=== PATIENT | female | born 1965 | race Caucasian/White ===

== ENCOUNTER 2017-02-13 19:42 | Emergency (ER) | payer MEDICAID ==
[~2017-02-13] VITALS: Ht 144.8 cm; Wt 80.3 kg
[2017-02-13 19:45] VITALS: BP 123/72
--- NOTE | 2017-02-13 19:56 | NUR ---
PATIENT AMBULATED TO ER BED 6.
--- NOTE | 2017-02-13 19:56 | NUR ---
Patient being evaluated by physician at bedside.
--- NOTE | 2017-02-13 20:00 | NUR ---
PATIENT PRESENTS TO ED WITH C/O CHEST PAIN INTERMITTENTLY X3 WEEKS. HX DM, HYPOTENSION. PT DENIES N/V/D; SKIN IS PINK/WARM/DRY; AAOX4 WITH EVEN AND STEADY GAIT; LUNGS CLEAR BL; HR EVEN AND REGULAR; PT DENIES ANY FEVER, CP, SOB, OR COUGH AT THIS TIME; VSS; PATIENT POSITIONED FOR COMFORT; HOB ELEVATED; BEDRAILS UP X2; BED DOWN. ER MD MADE AWARE OF PT STATUS.
[2017-02-13 20:32] LABS: BASOPHILS # (AUTO) 0.1 K/uL (0.00-0.22); BASOPHILS % (AUTO) 1.3 % (0.0-2.0); EOSINOPHILS # (AUTO) 0.2 K/uL (0-0.4); EOSINOPHILS % (AUTO) 2.2 % (0.0-4.0); HEMATOCRIT 39.3 % (36-48); HEMOGLOBIN 12.9 g/dL (12.0-16.0); LYMPHOCYTES % (AUTO) 24.9 % (20.5-51.1); MEAN CORPUSCULAR HEMOGLOBIN 29 pg (27-31); MEAN CORPUSCULAR HGB CONC 33 g/dL (33-37); MEAN CORPUSCULAR VOLUME 87 fL (80-94); MONOCYTES # (AUTO) 0.8 K/uL (0.8-1.0); MONOCYTES % (AUTO) 9.6 % (1.7-9.3); NEUTROPHILS # (AUTO) 4.8 K/uL (1.8-7.7); PLATELET COUNT (AUTO) 314 K/uL (140-450); RED BLOOD CELL COUNT(AUTO) 4.52 MIL/uL (4.20-5.40); RED CELL DISTRIBUTION WIDTH 13.1 % (11.6-13.7); WHITE BLOOD COUNT (AUTO) 7.9 K/uL (4.8-10.8)
[2017-02-13 20:52] LABS: ALBUMIN 3.8 g/dL (3.4-5.0); ANION GAP 8.9 (8-16); CARBON DIOXIDE 30.1 mmol/L (21-32); CREATININE 0.7 mg/dL (0.6-1.3); TOTAL BILIRUBIN 0.2 mg/dL (0.0-1.0)
[2017-02-13 21:00] LABS: PROTHROMBIN TIME 10.4 secs (10.8-13.4)
[2017-02-13 23:33] VITALS: BP 119/81
--- NOTE | 2017-02-13 23:33 | NUR ---
Patient discharged with v/s stable. Written and verbal after care instructions given and explained. Patient verbalized understanding. Ambulatory with steady gait. All questions addressed prior to discharge. Advised to follow up with PMD.
== END 2017-02-13 23:33 | disposition home or self-care (01) ==
LOC: MED 19:42
DX: M94.0 Chondrocostal junction syndrome [Tietze] (principal); E11.9 Type 2 diabetes mellitus without complications; I95.89 Other hypotension
CPT/HCPCS: 36415; 70480; 71010; 80053; 83880; 84484; 85025; 85610; 99285; Q0092

== ENCOUNTER 2017-02-21 16:22 | Emergency (ER) | payer MEDICAID ==
[~2017-02-21] VITALS: Ht 165.1 cm; Wt 81.2 kg
[2017-02-21 16:52] VITALS: BP 115/73
[2017-02-21 18:47] LABS: BASOPHILS # (AUTO) 0.3 K/uL (0.00-0.22); EOSINOPHILS # (AUTO) 0.2 K/uL (0-0.4); HEMATOCRIT 39.1 % (36-48); LYMPHOCYTES # (AUTO) 2.4 K/uL (2.5-16.5); MEAN CORPUSCULAR HEMOGLOBIN 29 pg (27-31); MEAN CORPUSCULAR HGB CONC 33 g/dL (33-37); MEAN CORPUSCULAR VOLUME 87 fL (80-94); MONOCYTES # (AUTO) 0.6 K/uL (0.8-1.0); NEUTROPHILS # (AUTO) 4.3 K/uL (1.8-7.7); PLATELET COUNT (AUTO) 290 K/uL (140-450); RED BLOOD CELL COUNT(AUTO) 4.49 MIL/uL (4.20-5.40); RED CELL DISTRIBUTION WIDTH 12.9 % (11.6-13.7); WHITE BLOOD COUNT (AUTO) 7.8 K/uL (4.8-10.8)
[2017-02-21 18:55] LABS: ANION GAP 8.5 (8-16); CARBON DIOXIDE 31.2 mmol/L (21-32); CREATININE 0.5 mg/dL (0.6-1.3); POTASSIUM 3.7 mmol/L (3.5-5.1)
[2017-02-21 19:01] LABS: ALBUMIN 3.9 g/dL (3.4-5.0); TOTAL BILIRUBIN 0.2 mg/dL (0.0-1.0)
[2017-02-21 19:02] LABS: PROTHROMBIN TIME 10.4 secs (10.8-13.4)
[2017-02-21 19:22] LABS: CREATINE KINASE MB 1.1 ng/mL (0-3.6)
[2017-02-21 22:06] VITALS: BP 111/68
== END 2017-02-21 22:10 | disposition home or self-care (01) ==
LOC: MED 16:22
DX: E11.649 Type 2 diabetes mellitus with hypoglycemia without coma (principal); K21.9 Gastro-esophageal reflux disease without esophagitis; Z79.899 Other long term (current) drug therapy
CPT/HCPCS: 36415; 71010; 80053; 81002; 81025; 82550; 82553; 82948; 84484; 85025; 85610; 85730; 93005; 99285

== ENCOUNTER 2019-05-14 08:56 | Emergency (ER) | payer MEDICAID ==
[~2019-05-14] VITALS: Ht 162.6 cm; Wt 78.9 kg
[2019-05-14 09:12] VITALS: BP 122/78
--- NOTE | 2019-05-14 09:18 | NUR ---
PT AMBULATED TO LOBBY, VSS
[2019-05-14] MEDS ORDERED: KETOROLAC 30 MG/ML VIAL IVP ONE (10:25)
[2019-05-14] MEDS ORDERED: NACL 0.9% 1,000 ML IV ONE (10:25)
--- NOTE | 2019-05-14 10:40 | NUR ---
IV NS AND TORADOL GIVEN PER ORDER. TO ATTEMPT TO OBTAIN ADDITIONAL URINE.
[2019-05-14 11:13] LABS: APPEARANCE,URINE HAZY (CLEAR); BILIRUBIN,URINE NEGATIVE (NEGATIVE); BLOOD, URINE 3+ (NEGATIVE); COLOR,URINE YELLOW (YELLOW); LEUKOCYTE ESTERASE ,URINE 2+ (NEGATIVE); NITRITE, URINE NEGATIVE (NEGATIVE); UGLUCOSE NEGATIVE (NEGATIVE)
[2019-05-14 11:18] LABS: RBC,URINE 50-80 /HPF (0-5)
[2019-05-14 11:19] LABS: WBC,URINE 20-60 /HPF (0-5)
[2019-05-14] MEDS ORDERED: cefTRIAXone 1,000 MG in LIDOCAINE MPF 1% 2.1 ML IM ONE (11:20)
[2019-05-14 12:58] VITALS: BP 96/63
== END 2019-05-14 12:32 | disposition home or self-care (01) ==
LOC: MED 08:56
DX: N39.0 Urinary tract infection, site not specified (principal); E11.9 Type 2 diabetes mellitus without complications; I10 Essential (primary) hypertension; R42 Dizziness and giddiness; Z98.890 Other specified postprocedural states; Z79.84 Long term (current) use of oral hypoglycemic drugs
CPT/HCPCS: 81001; 81025; 82948; 87086; 87186; 96372; 96374; 99283; J0696; J1885; J2001; 81002